=== PATIENT | male | born 1960 | race Caucasian/White ===

== ENCOUNTER 2020-12-07 20:00 | Emergency (ER) | payer BC ==
[~2020-12-07] VITALS: Ht 180.3 cm; Wt 90.7 kg
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
[2020-12-07] MEDS ORDERED: HYDROCODONE/APAP 5/325MG TABLET ONE (21:24)
[2020-12-07] MEDS ORDERED: TDAP [DIPH/PERTUSSIS/TET] 0.5 ML VIAL IM ONE (21:24)
[2020-12-07] MEDS: HYDROCODONE/APAP 5/325MG TABLET PO ONE (21:29)
[2020-12-07] MEDS: TDAP [DIPH/PERTUSSIS/TET] 0.5 ML VIAL IM ONE (21:29)
[2020-12-07] MEDS ORDERED: HYDR-3980 PO (21:41)
--- NOTE | 2020-12-07 21:58 | NUR ---
PT IS MEDICALLY STABLE FOR D/C. R SHOULDER SLING IN PLACE.Patient discharged to home in stable condition. Rx and Written and verbal after care instructions given. Patient verbalizes understanding of instruction.
[2020-12-07 22:04] VITALS: BP 111/73
== END 2020-12-07 22:05 | disposition home or self-care (01) ==
LOC: ER 20:08
DX: S42.031A Displaced fracture of lateral end of right clavicle, initial encounter for closed fracture (principal); S22.31XA Fracture of one rib, right side, initial encounter for closed fracture; S13.4XXA Sprain of ligaments of cervical spine, initial encounter; S80.211A Abrasion, right knee, initial encounter; S09.8XXA Other specified injuries of head, initial encounter; V19.88XA Pedal cyclist (driver) (passenger) injured in other specified transport accidents, initial encounter; Y93.89 Activity, other specified; Y92.89 Other specified places as the place of occurrence of the external cause; Y99.8 Other external cause status
CPT/HCPCS: 70450; 71100; 72125; 73030; 90471; 90715; 99285; A6403